=== PATIENT | male | born 1980 | race African-American/Black ===

== ENCOUNTER 2019-09-06 08:50 | Inpatient (IN) | payer BC ==
[~2019-09-06] VITALS: Ht 170.2 cm; Wt 168.7 kg
[2019-09-06 09:58] LABS: BASOPHILS % 0.5 % (0.0-2.0); HEMATOCRIT. 45.7 % (42.0-52.0); HEMOGLOBIN. 15.4 g/dL (14.0-18.0); LYMPHOCYTES % 20.5 % (20.0-50.0); MEAN CORPUSCULAR HEMOGLOBIN 28.7 pg (28.0-32.0); MEAN CORPUSCULAR VOLUME 85.2 fL (80.0-94.0); MEAN PLATELET VOLUME 9.2 fl (7.4-10.4); MONOCYTES % 5.9 % (2.0-8.0); NEUTROPHILS % 70.1 % (40.0-76.0); PLATELET 187 x1000/uL (130-400); RED BLOOD CELL COUNT 5.36 mill/uL (4.7-6.1); RED CELL DISTRIBUTION WIDTH 14.2 % (11.6-14.6)
[2019-09-06 10:06] LABS: CHLORIDE 107 mEq/L (98-107)
[2019-09-06 10:10] LABS: ETHANOL BLOOD < 10 mg/dL
[2019-09-06] MEDS ORDERED: ONDANSETRON HCL 4MG/2ML INJ IV STA (10:31)
[2019-09-06] MEDS ORDERED: SODIUM CHLORIDE 0.9% 1,000 ML IV ONE (10:31)
[2019-09-06] MEDS ORDERED: MORPHINE SULFATE 4 MG/ML CPJ (NOT FOR IM USE) IV STA (10:31)
[2019-09-06] MEDS ORDERED: ASPIRIN 81MG TABLET PO ONE (10:45)
[2019-09-06] MEDS ORDERED: NITROGLYCERIN OINT 1GM/INCH UDPKT TD ONE (10:45)
[2019-09-06] MEDS ORDERED: ONDANSETRON HCL 4MG/2ML INJ IV PRN (12:30)
[2019-09-06] MEDS ORDERED: CLONIDINE 0.1MG TABLET PO PRN (12:30)
[2019-09-06] MEDS ORDERED: LORAZEPAM 0.5MG TABLET PO PRN (12:30)
[2019-09-06] MEDS ORDERED: ACETAMINOPHEN 325MG TABLET PO PRN (12:30)
[2019-09-06] MEDS ORDERED: GUAIFENESIN 200MG/10ML SUGAR FREE UDC PO PRN (12:30)
[2019-09-06] MEDS ORDERED: NITROGLYCERIN 0.4MG TABLET SL SL PRN (12:30)
[2019-09-06] MEDS ORDERED: IPRATROPIUM/ALBUTEROL 0.5-3(2.5)MG/3ML NEB NEB PRN (12:30)
[2019-09-06] MEDS ORDERED: DOCUSATE SODIUM 100MG CAPSULE PO PRN (12:30)
[2019-09-06] MEDS ORDERED: MAGNESIUM/ALUMINUM HYDROXIDE/SIMETHICONE 30ML UDC PO PRN (12:30)
[2019-09-06] MEDS: BLOOD SUGAR DIAGNOSTIC STRIP TEST SCH ×4 (13:00→21:11)
[2019-09-06] MEDS ORDERED: INSULIN LISPRO 100 UNITS/ML SUBCUT SCH (13:20)
[2019-09-06 13:32] LABS: *AMPHETAMINES SCREEN URINE NEGATIVE (NEGATIVE); *BARBITURATES SCREEN URINE NEGATIVE (NEGATIVE); *COCAINE SCREEN URINE NEGATIVE (NEGATIVE); METHADONE URINE SCREEN NEGATIVE (NEGATIVE); OPIATES URINE SCREEN PRESUMTIVE POSITIVE (NEGATIVE)
[2019-09-06 13:33] LABS: *BENZODIAZEPINES SCREEN URINE NEGATIVE (NEGATIVE); CANNABINOID URINE SCREEN NEGATIVE (NEGATIVE)
[2019-09-06 13:41] LABS: PHENCYCLIDINE URINE SCREEN NEGATIVE (NEGATIVE)
[2019-09-06 14:31] LABS: CREATINE KINASE 265 IU/L (39-308)
[2019-09-06 14:33] LABS: CREATINE KINASE MB FRACTION 1.7 ng/mL (0.5-3.6)
[2019-09-06 16:28] VITALS: BP 153/89
[2019-09-06] MEDS ORDERED: TRAMADOL 50MG TABLET PO PRN (16:34)
[2019-09-06 16:43] VITALS: BP 153/89
[2019-09-06] MEDS ORDERED: KETOROLAC 15MG/ML VIAL IV PRN (16:50)
[2019-09-06] MEDS ORDERED: INSU100I28 SQ (16:53)
[2019-09-06] MEDS ORDERED: LOSA50TA41 PO (16:53)
[2019-09-06] MEDS: INSULIN LISPRO 100 UNITS/ML SUBCUT SCH ×2 (17:28→21:00)
[2019-09-06] MEDS ORDERED: DEXTROSE 50% WATER 50ML SYRINGE IV PRN (17:28)
[2019-09-06] MEDS: LOSARTAN POTASSIUM 50 MG TABLET PO SCH (18:08)
[2019-09-06 18:16] LABS: *AMPHETAMINES SCREEN URINE NEGATIVE (NEGATIVE); *BARBITURATES SCREEN URINE NEGATIVE (NEGATIVE); *BENZODIAZEPINES SCREEN URINE NEGATIVE (NEGATIVE); *COCAINE SCREEN URINE NEGATIVE (NEGATIVE); METHADONE URINE SCREEN NEGATIVE (NEGATIVE)
[2019-09-06 18:17] LABS: CANNABINOID URINE SCREEN NEGATIVE (NEGATIVE); OPIATES URINE SCREEN PRESUMTIVE POSITIVE (NEGATIVE); PHENCYCLIDINE URINE SCREEN NEGATIVE (NEGATIVE)
[2019-09-06 18:18] VITALS: BP 149/84
[2019-09-06 20:10] VITALS: BP 122/84
[2019-09-06] MEDS ORDERED: ZOLPIDEM TARTRATE 5MG TABLET PO PRN (21:00)
[2019-09-06] MEDS: FAMOTIDINE 20MG TABLET PO SCH (21:20)
[2019-09-06] MEDS: ENOXAPARIN 40MG/0.4ML SYR SUBCUT SCH (21:21)
[2019-09-06] MEDS: INSULIN GLARGINE UD 100 UNITS/ML SYR SUBCUT SCH (21:28)
[2019-09-06 22:10] VITALS: BP 117/68
[2019-09-07] VITALS (9 sets, daily range): BP systolic 100–150; BP diastolic 64–91
[2019-09-07] MEDS: BLOOD SUGAR DIAGNOSTIC STRIP TEST SCH (06:03)
[2019-09-07] MEDS: INSULIN LISPRO 100 UNITS/ML SUBCUT SCH (07:20)
[2019-09-07] MEDS ORDERED: ASPIRIN 325MG EC TABLET PO SCH (09:00)
[2019-09-07] MEDS: LOSARTAN POTASSIUM 50 MG TABLET PO SCH (09:07)
[2019-09-07] MEDS: FAMOTIDINE 20MG TABLET PO SCH (09:07)
[2019-09-07 09:13] LABS: BASOPHILS % 0.2 % (0.0-2.0); EOSINOPHILS % 2.8 % (0.0-5.0); HEMATOCRIT. 42.1 % (42.0-52.0); HEMOGLOBIN. 14.4 g/dL (14.0-18.0); LYMPHOCYTES % 24.6 % (20.0-50.0); MEAN CORPUSCULAR HEMOGLOBIN 28.9 pg (28.0-32.0); MEAN CORPUSCULAR VOLUME 84.8 fL (80.0-94.0); MEAN PLATELET VOLUME 9.1 fl (7.4-10.4); MONOCYTES % 5.2 % (2.0-8.0); NEUTROPHILS % 67.2 % (40.0-76.0); PLATELET 163 x1000/uL (130-400); RED BLOOD CELL COUNT 4.96 mill/uL (4.7-6.1); RED CELL DISTRIBUTION WIDTH 14.2 % (11.6-14.6)
[2019-09-07 09:17] LABS: CHLORIDE 104 mEq/L (98-107)
[2019-09-07 09:25] LABS: LDL CHOLESTEROL 70 mg/dL (5-100)
[2019-09-07 09:27] LABS: CREATINE KINASE 230 IU/L (39-308); CREATINE KINASE MB FRACTION 1.5 ng/mL (0.5-3.6); HDL CHOLESTEROL 51 mg/dL (40-59)
[2019-09-07] MEDS: ENOXAPARIN 40MG/0.4ML SYR SUBCUT SCH (09:27)
[2019-09-07] MEDS: INSULIN GLARGINE UD 100 UNITS/ML SYR SUBCUT SCH (09:31)
== END 2019-09-07 11:53 | disposition home or self-care (01) | DRG 313 ==
LOC: ER 09:46 → 3WST 10:53 → EDBEDREQ 10:56 → EDBEDREQTM 10:56 → ENRESERV 13:46
PROVIDERS: ADMIT Internal Medicine; ATTEND Internal Medicine
DX: R07.89 Other chest pain (principal); Z68.43 Body mass index [BMI] 50.0-59.9, adult; E11.9 Type 2 diabetes mellitus without complications; I10 Essential (primary) hypertension; E66.01 Morbid (severe) obesity due to excess calories; Z79.4 Long term (current) use of insulin; L40.9 Psoriasis, unspecified
CPT/HCPCS: 36415; 71045; 80061; 80305; 80320; 82550; 82553; 82962; 83036; 83735; 83880; 84484; 85379; 93005; 93306; 93970; 96374; 99285; J1650; J1815; J2270; J2405; J7030; G0480